=== PATIENT | male | born 1950 | race Caucasian/White ===

== ENCOUNTER 2020-09-27 19:00 | Observation (INO) | payer OTHER, MEDICARE, BC ==
[~2020-09-27] VITALS: Ht 157.5 cm; Wt 98.0 kg
[~2020-09-27 19:00] MED LIST: LORA2 PO; MULVITMINE PO; NITR.4SL SL; OMEP20ER PO
[2020-09-27 19:27] LABS: BASOPHILS ABSOLUTE AUTO 0.05 K/mm3 (0.00-0.23); BASOPHILS PERCENT AUTO 1 % (0-2); EOSINOPHILS ABSOLUTE AUTO 0.12 K/mm3 (0.00-0.68); EOSINOPHILS PERCENT AUTO 2 % (0-6); Hemoglobin 15.1 g/dL (13.5-17.5); IMMATURE GRAN ABSOLUTE AUTO 0.01 K/mm3 (0.00-0.10); IMMATURE GRAN PERCENT AUTO 0 % (0-1); LYMPHOCYTES PERCENT AUTO 35 % (21-46); MONOCYTES ABSOLUTE AUTO 0.47 K/mm3 (0.16-1.47); MONOCYTES PERCENT AUTO 9 % (4-13); Mean Corpuscular HGB 31.8 pg (26.0-34.0); Mean Corpuscular HGB Conc 34.3 g/dL (31.5-36.5); Mean Corpuscular Volume 93 fL (80-100); Mean Platelet Volume 10.7 fL (9.1-12.4); NEUTROPHILS ABSOLUTE AUTO 2.69 K/mm3 (1.96-9.15); NEUTROPHILS PERCENT AUTO 52 % (41-73); Platelet Count 189 K/mm3 (150-400); RDW Coefficient Variation 12.6 % (11.7-14.2); RDW Standard Deviation 43.3 fL (35.1-46.3); Red Blood Cell Count 4.75 M/mm3 (4.30-5.90); White Blood Cell Count 5.14 K/mm3 (4.00-11.30)
[2020-09-27 19:41] LABS: Alanine Aminotransfer (ALT/SGP 207 U/L (12-78); Albumin/Globulin Ratio 1.1 (0.8-1.8); Alk Phos 95 U/L (50-136); Anion Gap 5 mmol/L (6-16); Aspartate Aminotrans (AST/SGOT 131 U/L (12-37); Bilirubin, Total 0.5 mg/dL (0.1-1.0); Blood Urea Nitrogen 21 mg/dL (8-24); Bun/Creatinine Ratio 27.8 (12.0-20.0); CO2, Blood 28 mmol/L (21-32); Calcium, Blood 9.6 mg/dL (8.5-10.1); Chloride, Blood 105 mmol/L (98-108); Creatinine, Blood 0.76 mg/dL (0.60-1.20); Globulin, Blood 3.8 g/dL (2.2-4.0); Glomerular Filtration Rate >60 (60-); Glucose, Blood 127 mg/dL (70-99); Potassium, Blood 3.9 mmol/L (3.5-5.5); Sodium, Blood 138 mmol/L (136-145); Total Protein, Blood 7.8 g/dL (6.4-8.2); Troponin I <0.015 ng/mL (0.000-0.040)
[2020-09-27] MEDS ORDERED: ASCO500 PO (19:48)
[2020-09-27] MEDS ORDERED: VITAMIN D3-ALO1 EACH PO (19:49)
[2020-09-27] MEDS ORDERED: Vitamin B-121000 MCG PO (19:50)
[2020-09-27] MEDS ORDERED: BASAGLAR K100 UNIT/1 SC (21:25)
[2020-09-27] MEDS ORDERED: EUTHYROX125 MCG PO (21:25)
[2020-09-27] MEDS ORDERED: NOVOLOG FL100 UNIT/3 SC (21:25)
[2020-09-27] MEDS ORDERED: Aspir 8181 MG PO (22:05)
[2020-09-27] MEDS ORDERED: ZINC PO (22:05)
--- NOTE | 2020-09-28 04:20 | NUR ---
SHIFT SUMMARY PT NEW ED ADMIT THIS EVENING. PT HAS DENIED CHEST OR SOB SINCE ADMISSION. APPEARED TO SLEEP WELL AFTER BEING LEFT TO REST BY STAFF. TELEMETRY MONITORING READING SR IN THE 80'S THROUGHOUT THE NIGHT. PT NPO AT 0300 FOR SCHEDULED STRESS TEST. NO CAFFEINE. PT ON RA. VITAL SIGNS STABLE. NO ACUTE CHANGES THIS SHIFT. WILL CONTINUE TO MONITOR AND REPORT TO DAY RN.
[2020-09-28 08:17] LABS: CHOL/HDL RATIO 7.1; Cholesterol 261 mg/dL (50-200); HDL Cholesterol 37 mg/dL (>39); Low Density Lipoprotein Chol 186 mg/dL (0-110); Triglycerides 190 mg/dL (30-160); Very Low Density Lipoprot Chol 38 mg/dL (6-32)
--- NOTE | 2020-09-28 16:49 | NUR ---
PATIENT A/OX4 AND INDEPENDENT IN ROOM. FIRST PART OF STRESS TEST COMPLETED THIS AM AND 2ND PART WILL BE TOMORROW. VSS, ON RA. CPAP AT NOC. SR IN THE 70'S ON TELE, PATIENT DENIES ANY CP OR PRESSURE TODAY. 20G IV TO R AC WNL AND SL. ACHS BLOOD SUGARS, TOLERATING ADA/CARDIAC DIET. SKIN INTACT. NO NEW CONCERNS THIS SHIFT. PATIENT IS COOPERATIVE WITH CARE AND ABLE TO MAKE NEEDS KNOWN.
--- NOTE | 2020-09-29 04:57 | NUR ---
SHIFT SUMMARY NO ACUTE CHANGES THIS EVENING. PT SLEPT WELL. CPAP ON WHILE SLEEPING. RA WHILE AWAKE. CONT OX MONITORING. PT NPO SINCE MIDNIGHT FOR SECOND PART OF STRESS TEST. NO CAFFEINE THIS EVENING. PT HAS DENIED ANY CP OR SOB. TELEMETRY SHOWING SR IN THE 80'S. VITAL SIGNS STABLE. WILL CONTINUE TO MONITOR AND REPORT TO DAY RN.
--- NOTE | 2020-09-29 16:20 | NUR ---
PATIENT D/C'D TO HOME WITH SPOUSE. DC INSTRUCTIONS AND EDUCATION DISCUSSED WITH PATIENT AND COPY PROVIDED. NO NEW RX MEDICATIONS. PATIENT DENIES ANY OTHER QUESTIONS AND CONCERNS.
== END 2020-09-29 16:20 | disposition home or self-care (01) ==
LOC: ER 19:00 → MEDS 19:01
PROVIDERS: Emergency Medicine; ADMIT Internal Medicine
DX: I25.10 Atherosclerotic heart disease of native coronary artery without angina pectoris (principal); E03.9 Hypothyroidism, unspecified; E11.9 Type 2 diabetes mellitus without complications; I25.2 Old myocardial infarction; E66.9 Obesity, unspecified; Z29.8 Encounter for other specified prophylactic measures; Z95.1 Presence of aortocoronary bypass graft; Z79.4 Long term (current) use of insulin; Z87.891 Personal history of nicotine dependence
CPT/HCPCS: 36415; 71046; 78452; 80053; 80061; 82947; 84484; 85025; 93005; 93010; 93017; 94660; 94762; 96372; 99285-25; A9270; A9500; G0378; J0280; J1650; J2785

== ENCOUNTER 2021-02-28 09:35 | Emergency (ER) | payer OTHER ==
[~2021-02-28] VITALS: Ht 167.6 cm; Wt 81.7 kg
[~2021-02-28 09:35] MED LIST changes: +ASCO500 PO; +Aspir 8181 MG PO; +BASAGLAR K100 UNIT/1 SC; +EUTHYROX125 MCG PO; +NOVOLOG FL100 UNIT/3 SC; +VITAMIN D3-ALO1 EACH PO; +Vitamin B-121000 MCG PO; +ZINC PO
[2021-02-28 10:18] LABS: BASOPHILS ABSOLUTE AUTO 0.01 K/mm3 (0.00-0.23); BASOPHILS PERCENT AUTO 0 % (0-2); EOSINOPHILS PERCENT AUTO 0 % (0-6); Hematocrit 42.4 % (37.0-53.0); Hemoglobin 14.3 g/dL (13.5-17.5); IMMATURE GRAN ABSOLUTE AUTO 0.03 K/mm3 (0.00-0.10); IMMATURE GRAN PERCENT AUTO 1 % (0-1); LYMPHOCYTES ABSOLUTE AUTO 0.55 K/mm3 (0.84-5.20); LYMPHOCYTES PERCENT AUTO 11 % (21-46); MONOCYTES ABSOLUTE AUTO 0.18 K/mm3 (0.16-1.47); MONOCYTES PERCENT AUTO 4 % (4-13); Mean Corpuscular HGB 30.9 pg (26.0-34.0); Mean Corpuscular HGB Conc 33.7 g/dL (31.5-36.5); Mean Corpuscular Volume 92 fL (80-100); Mean Platelet Volume 11.1 fL (9.1-12.4); NEUTROPHILS ABSOLUTE AUTO 4.29 K/mm3 (1.96-9.15); NEUTROPHILS PERCENT AUTO 85 % (41-73); Platelet Count 166 K/mm3 (150-400); RDW Coefficient Variation 13.1 % (11.7-14.2); RDW Standard Deviation 43.8 fL (35.1-46.3); Red Blood Cell Count 4.63 M/mm3 (4.30-5.90); White Blood Cell Count 5.06 K/mm3 (4.00-11.30)
[2021-02-28 10:40] LABS: Alanine Aminotransfer (ALT/SGP 82 U/L (12-78); Albumin, Blood 2.8 g/dL (3.4-5.0); Albumin/Globulin Ratio 0.7 (0.8-1.8); Alk Phos 47 U/L (50-136); Anion Gap 8 mmol/L (6-16); Aspartate Aminotrans (AST/SGOT 74 U/L (12-37); Bilirubin, Total 1.2 mg/dL (0.1-1.0); Blood Urea Nitrogen 24 mg/dL (8-24); Bun/Creatinine Ratio 30.7 (12.0-20.0); CO2, Blood 25 mmol/L (21-32); Calcium, Blood 8.5 mg/dL (8.5-10.1); Chloride, Blood 105 mmol/L (98-108); Creatinine, Blood 0.78 mg/dL (0.60-1.20); Globulin, Blood 4.2 g/dL (2.2-4.0); Glomerular Filtration Rate >60 (60-); Glucose, Blood 119 mg/dL (70-99); Potassium, Blood 3.7 mmol/L (3.5-5.5); Sodium, Blood 138 mmol/L (136-145); Troponin I <0.015 ng/mL (0.000-0.040)
[2021-02-28 11:00] LABS: SARS-Cov-2 (COVID-19) PCR, MMC POSITIVE (NEGATIVE)
[2021-02-28] MEDS ORDERED: DECADRON6 M1 PO (11:21)
== END 2021-02-28 13:10 | disposition home or self-care (01) ==
LOC: ER 09:35
PROVIDERS: Emergency Medicine
DX: U07.1 COVID-19 (principal); J12.82 Pneumonia due to coronavirus disease 2019; R09.02 Hypoxemia; Z87.891 Personal history of nicotine dependence; Z85.51 Personal history of malignant neoplasm of bladder; Z79.899 Other long term (current) drug therapy; Z79.82 Long term (current) use of aspirin
CPT/HCPCS: 36415; 71045; 80053; 83880; 84484; 85025; 93005; 93010; 96374; 99284-25; J1100; U0004

== ENCOUNTER 2021-03-02 17:14 | Inpatient (IN) | payer OTHER ==
[~2021-03-02] VITALS: Ht 177.8 cm; Wt 88.0 kg
[~2021-03-02 17:14] MED LIST changes: +DECADRON6 M1 PO
[2021-03-02 17:51] LABS: Hematocrit 41.9 % (37.0-53.0); Hemoglobin 14.4 g/dL (13.5-17.5); Mean Corpuscular HGB 30.8 pg (26.0-34.0); Mean Corpuscular HGB Conc 34.4 g/dL (31.5-36.5); Mean Corpuscular Volume 90 fL (80-100); Mean Platelet Volume 11.4 fL (9.1-12.4); Platelet Count 238 K/mm3 (150-400); RDW Coefficient Variation 12.8 % (11.7-14.2); RDW Standard Deviation 42.3 fL (35.1-46.3); Red Blood Cell Count 4.68 M/mm3 (4.30-5.90)
[2021-03-02 18:10] LABS: Alanine Aminotransfer (ALT/SGP 81 U/L (12-78); Albumin, Blood 2.8 g/dL (3.4-5.0); Albumin/Globulin Ratio 0.7 (0.8-1.8); Alk Phos 57 U/L (50-136); Anion Gap 8 mmol/L (6-16); Aspartate Aminotrans (AST/SGOT 71 U/L (12-37); Bilirubin, Total 0.7 mg/dL (0.1-1.0); Blood Urea Nitrogen 38 mg/dL (8-24); Bun/Creatinine Ratio 55.6 (12.0-20.0); CO2, Blood 24 mmol/L (21-32); Calcium, Blood 8.8 mg/dL (8.5-10.1); Chloride, Blood 108 mmol/L (98-108); Creatinine, Blood 0.68 mg/dL (0.60-1.20); Ferritin, Serum 1390 ng/mL (26-388); Globulin, Blood 4.2 g/dL (2.2-4.0); Glomerular Filtration Rate >60 (60-); Glucose, Blood 159 mg/dL (70-99); Lactate Dehydrogenase (Ld),Bld 624 U/L (100-240); Potassium, Blood 3.4 mmol/L (3.5-5.5); Sodium, Blood 140 mmol/L (136-145)
[2021-03-02 18:23] LABS: BAND PERCENT MAN 4 % (0-8); BASOPHILS PERCENT MAN 0 % (0-2); EOSINOPHILS PERCENT MAN 0 % (0-6); LYMPHOCYTES % ATYPICAL MANUAL 3 % (0-0); LYMPHOCYTES ABSOLUTE MAN 0.66 K/mm3 (0.84-5.20); LYMPHOCYTES PERCENT MAN 5 % (21-46); MONOCYTES ABSOLUTE MAN 0.08 K/mm3 (0.16-1.47); MONOCYTES PERCENT MAN 1 % (4-13); NEUTROPHILS ABSOLUTE MAN 7.55 K/mm3 (1.96-9.15); SEG NEUTROPHILS PERCENT MAN 87 % (41-73); TOTAL CELLS COUNTED 100
--- NOTE | 2021-03-02 22:39 | NUR ---
2200 PT ARRIVED TO ROOM FROM ER IN STABLE CONDITION. PT REPORTS A LITTLE SOB THAT INCREASES WITH EXERTION, ON 15L VIA NRB MASK AT 90%. NO OTHER APPARENT SIGNS OF DISTRESS. CALL LIGHT IS IN REACH.
--- NOTE | 2021-03-02 23:04 | NUR ---
TELE IS ON , IT IS NSR AT 63 PER METAL PLATER.
--- NOTE | 2021-03-02 23:05 | NUR ---
PT LYING IN BED, AWAKE, NO APPARENT SIGNS OF DISTRESS. DENIES NEED FOR ANYTHING AT THIS TIME. CALL LIGHT IS IN REACH.
--- NOTE | 2021-03-03 00:09 | NUR ---
PT LYING IN BED, EYES CLOSED, APPEARS TO BE RESTING. BREATHING IS EVEN, UNLABORED. NO APPARENT SIGNS OF DISTRESS. CALL LIGHT IS IN REACH.
--- NOTE | 2021-03-03 01:44 | NUR ---
PT LYING IN BED, EYES CLOSED, APPEARS TO BE RESTING. BREATHING IS EVEN, UNLABORED. NO APPARENT SIGNS OF DISTRESS. CALL LIGHT IS IN REACH.
--- NOTE | 2021-03-03 03:20 | NUR ---
PT LYING IN BED, EYES CLOSED, APPEARS TO BE RESTING. WAKES EASILY TO VERBAL STIMUL. NO APPARENT SIGNS OF DISTRESS. CALL LIGHT IS IN REACH.
--- NOTE | 2021-03-03 03:20 | NUR ---
PT IS AAO X 4 , ON 15L VIA OXIMIZER OR NRB AT 92% , BIPAP AT NOC. A LITTLE SOB THAT INCREASES WITH EXERTION. BS WAS 159. TELE NSR.
--- NOTE | 2021-03-03 05:22 | NUR ---
PT LYING IN BED, EYES CLOSED, APPEARS TO BE RESTING. WAKES EASILY TO VERBAL STIMULI. NO APPARENT SIGNS OF DISTRESS. CALL LIGHT IS IN REACH. NO OTHER CHANGES THIS SHIFT.
--- NOTE | 2021-03-03 05:51 | NUR ---
PT REPORTED SHARP PAIN IN R SIDE OF NECK, HEADING DOWN TO CT NOW. WILL AWAIT RESULTS. NO OTHER APPARENT SIGNS OF DISTRESS.
[2021-03-03 05:56] LABS: BASOPHILS ABSOLUTE AUTO 0.01 K/mm3 (0.00-0.23); BASOPHILS PERCENT AUTO 0 % (0-2); EOSINOPHILS PERCENT AUTO 0 % (0-6); Hematocrit 40.4 % (37.0-53.0); Hemoglobin 13.2 g/dL (13.5-17.5); Mean Corpuscular HGB 30.3 pg (26.0-34.0); Mean Corpuscular HGB Conc 32.7 g/dL (31.5-36.5); Mean Corpuscular Volume 93 fL (80-100); Mean Platelet Volume 11.3 fL (9.1-12.4); Platelet Count 180 K/mm3 (150-400); RDW Coefficient Variation 12.8 % (11.7-14.2); RDW Standard Deviation 43.4 fL (35.1-46.3); Red Blood Cell Count 4.36 M/mm3 (4.30-5.90)
--- NOTE | 2021-03-03 06:12 | NUR ---
PT IS BACK FROM CT, PT REPORTS THE PAIN ON THE R SIDE OF HIS NECK IS GONE NOW. WILL AWAIT RESULTS FROM THE CT. PT DENIES NEED FOR ANYTHING ELSE AT THIS TIME. CALL LIGHT IS IN REACH. NO APPARENT SIGNS OF DISTRESS. NO OTHER CHANGES THIS SHIFT.
[2021-03-03 06:25] LABS: Alanine Aminotransfer (ALT/SGP 78 U/L (12-78); Albumin, Blood 2.5 g/dL (3.4-5.0); Albumin/Globulin Ratio 0.6 (0.8-1.8); Alk Phos 54 U/L (50-136); Anion Gap 8 mmol/L (6-16); Aspartate Aminotrans (AST/SGOT 56 U/L (12-37); Bilirubin, Total 0.7 mg/dL (0.1-1.0); Blood Urea Nitrogen 29 mg/dL (8-24); Bun/Creatinine Ratio 42.3 (12.0-20.0); CO2, Blood 24 mmol/L (21-32); Calcium, Blood 8.5 mg/dL (8.5-10.1); Chloride, Blood 108 mmol/L (98-108); Creatinine, Blood 0.69 mg/dL (0.60-1.20); Globulin, Blood 4.1 g/dL (2.2-4.0); Glomerular Filtration Rate >60 (60-); Glucose, Blood 183 mg/dL (70-99); Potassium, Blood 4.1 mmol/L (3.5-5.5); Sodium, Blood 140 mmol/L (136-145); Total Protein, Blood 6.6 g/dL (6.4-8.2)
[2021-03-03 06:30] LABS: IMMATURE GRAN ABSOLUTE AUTO 0.06 K/mm3 (0.00-0.10); IMMATURE GRAN PERCENT AUTO 1 % (0-1); LYMPHOCYTES ABSOLUTE AUTO 0.55 K/mm3 (0.84-5.20); LYMPHOCYTES PERCENT AUTO 9 % (21-46); MONOCYTES PERCENT AUTO 3 % (4-13); NEUTROPHILS ABSOLUTE AUTO 5.38 K/mm3 (1.96-9.15); NEUTROPHILS PERCENT AUTO 87 % (41-73)
--- NOTE | 2021-03-03 17:57 | NUR ---
SHIFT SUMMARY PATIENT DENIES PAIN AND NAUSEA, OCCASSIONAL COUGH. REQUIRED 15L/OXYMIZER AND 15L/NRB CONCURRENT TO MAINTAIN OXYGEN SATURATION ABOVE 90% THIS MORING. SWITCHED TO CPAP WITH BLEED IN AND NOW MAINTIANING OXYGEN SATURATION ABOVE 90%. URINAL AT BEDSIDE. POOR PO INTAKE. PLEASANT AND COOPERATIVE WITH CARE.
--- NOTE | 2021-03-04 00:10 | NUR ---
EARLIER IN THE SHIFT WANTED PT TO CALL HER, NUMBER GIVEN TO PT. REMAINS ON CPAP WITH OXIMIZER AT 15L/MIN. MED TELE SINUS RHYTHM. SOME EPISODES OF ANXIETY AND REDIRECTED BY STAFF TO TAKE DEEP BREATHS, SATS INCREASED BACK TO THE 90'S. CURRENTLY O2 SATS 91%. CALL LIGHT IN REACH. ISOLATION PRECAUTIONS MAINTAINED
--- NOTE | 2021-03-04 01:33 | NUR ---
O2 SATS DROPPING INTO HIGH 70'S/LOW 80'S. UPON BEDSIDE ASSESSMENT, PT HAD CPAP OFF. INSTRUCTED TO KEEP CPAP ON AND TO TAKE DEEP BREATHS. SATS INCREASED TO 88 - 90% BUT DROPPED BACK INTO MID 80'S. RT NOTIFIED AND WAS INSTRUCTED TO INCREASE O2 BLEED IN ALL THE WAY UP. O2 BLEED IN BACK TO 15L/MIN. (RT VOICED SHE WAS TRYING TO WEAN HIM DOWN). WILL MONITOR. SATS CURRENTLY 93%.
--- NOTE | 2021-03-04 01:56 | NUR ---
o2 sats trending downward to mid 80's again. RT notified and will assess pt. See RT documentation. Call light inr each. Pt again encouraged to take deep breaths
[2021-03-04 03:53] LABS: PCO2 Arterial 29.4 mmHg (35-45); PO2 Arterial 66.3 mmHg (80-100); pH Blood Arterial 7.47 (7.35-7.45)
--- NOTE | 2021-03-04 04:36 | NUR ---
PT APARENTLY BECAME QUITE ANXIOUS, SITTING UP AND BEGAN SHAKING ARMS AND UPPER BODY. O2 SATS DROPPED INTO THE 70'S, HR AND RESPS INCREASED, (136 AND 32 RESPECTIVELY). RAPID RESPONSE CALLED. ORDERED IV LASIX (ADMINISTERED), C XRAY - SEE RADIOLOGY DOC. IV ATIVAN ADMINISTERED. INCREASED O2 PRESSURE. MD EVALUATED STATUS OF PT. GE PLACED. MD GAVE ORDERS FOR TRANSFER TO PCU.
--- NOTE | 2021-03-04 05:01 | NUR ---
GE PLACED WITH STERILE TECHNIQUE. DRAINING CLEAR. CALL LIGHT IN REACH
--- NOTE | 2021-03-04 05:35 | NUR ---
REPORT GIVEN TO NURSE ON PCU FOR TRANSFER. CURRENT HR: 87, O2 SATS: 93%
--- NOTE | 2021-03-04 06:23 | NUR ---
PT TRANSFERRED TO PCU. GE DRAINING CLEAR. CONTINUES ON CPAP FOR O2.
--- NOTE | 2021-03-04 18:42 | NUR ---
SHIFT SUMMARY PT CONFUSED. PULLING AT LINES AND REMOVING AIRVO THIS AM. ORDERS FOR SOFT BILATERAL WRIST RESTRAINTS. PT FREQUENTLY RE-ORIENTED. DID NOT KNOW LOCATION OR WHY HE IS IN HOSPITAL. PT GIVEN ATIVAN TO ASSIST IN CALMING DOWN THIS AM. PT RESTING T/O SHIFT. HR STABLE. BP STABLE. NO CP OR PRESSURE. PT'S REQUESTING UPDATE FROM PHYSICIAN. PHYSICIAN NOTIFIED. GE PATENT AND DRAINING. BED ALARM IN PLACE. OXYGEN SATURATION MAINTAINED ABOVE 90% ON 65L/100% FIO2 ON AIRVO. WILL CONT TO MONITOR UNTIL REPORT GIVEN TO NIGHTSHIFT RN.
[2021-03-05 04:01] LABS: BASOPHILS ABSOLUTE AUTO 0.01 K/mm3 (0.00-0.23); BASOPHILS PERCENT AUTO 0 % (0-2); EOSINOPHILS ABSOLUTE AUTO 0.17 K/mm3 (0.00-0.68); EOSINOPHILS PERCENT AUTO 3 % (0-6); Hematocrit 42.5 % (37.0-53.0); Hemoglobin 14.3 g/dL (13.5-17.5); IMMATURE GRAN ABSOLUTE AUTO 0.08 K/mm3 (0.00-0.10); IMMATURE GRAN PERCENT AUTO 1 % (0-1); LYMPHOCYTES ABSOLUTE AUTO 0.69 K/mm3 (0.84-5.20); LYMPHOCYTES PERCENT AUTO 11 % (21-46); MONOCYTES PERCENT AUTO 3 % (4-13); Mean Corpuscular HGB Conc 33.6 g/dL (31.5-36.5); Mean Corpuscular Volume 92 fL (80-100); NEUTROPHILS ABSOLUTE AUTO 5.21 K/mm3 (1.96-9.15); NEUTROPHILS PERCENT AUTO 82 % (41-73); Platelet Count 231 K/mm3 (150-400); Red Blood Cell Count 4.61 M/mm3 (4.30-5.90); White Blood Cell Count 6.36 K/mm3 (4.00-11.30)
[2021-03-05 04:27] LABS: Alanine Aminotransfer (ALT/SGP 96 U/L (12-78); Albumin, Blood 2.4 g/dL (3.4-5.0); Albumin/Globulin Ratio 0.5 (0.8-1.8); Alk Phos 55 U/L (50-136); Anion Gap 4 mmol/L (6-16); Aspartate Aminotrans (AST/SGOT 56 U/L (12-37); Blood Urea Nitrogen 26 mg/dL (8-24); Bun/Creatinine Ratio 34.3 (12.0-20.0); CO2, Blood 29 mmol/L (21-32); Calcium, Blood 8.8 mg/dL (8.5-10.1); Chloride, Blood 107 mmol/L (98-108); Creatinine, Blood 0.76 mg/dL (0.60-1.20); Globulin, Blood 4.5 g/dL (2.2-4.0); Glomerular Filtration Rate >60 (60-); Glucose, Blood 89 mg/dL (70-99); Potassium, Blood 4.3 mmol/L (3.5-5.5); Sodium, Blood 140 mmol/L (136-145); Total Protein, Blood 6.9 g/dL (6.4-8.2)
--- NOTE | 2021-03-05 05:08 | NUR ---
SHIFT SUMMARY ASSUMED CARE OF PT AT 1900. PT IS A/OX4. PT ASKS REPEATIVLY WHEN HE CAN GO HOME AND WHEN THE DOCTOR WILL SEE HIM. HEART SOUNDS REGULAR. LUNG SOUNDS HAVE CRACKLES T/O. PT REMAINED ON AIRVO T/O THE NIGHT (65L 80%). PT WAS TURNED UP TO 90% THIS AM DUE TO DESATURATION INTO THE LOW 83% AFTER COUGHING. PT HAS A CATHETER DRAINING DARK CHARLENE URINE. PT ABLE TO MOVE HIMSELF AROUND IN BED, TURNING FROM SIDE TO SIDE. CALL LIGHT IN REACH, BED IN LOWEST POSITON, BED ALARM ON.
--- NOTE | 2021-03-05 17:51 | NUR ---
SHIFT SUMMARY PT A&Ox4; COOPERATIVE WITH CARE. PT UP TO CHAIR THIS AFTERNOON WITH 1 PERSON ASSIST. PT ON AIRVO FOR MAJORITY OF SHIFT. CURRENT SETTING 55L AND FIO2 90% O2 SATURATION 88-92%. PT DENIES PAIN, CHEST PAIN, NAUSEA AND DIZZINESS. ENCOUARGES PT TO PRONE/LYING ON SIDE THIS AFTERNOON FOR APPROX 2 HOURS. ORAL COMPLETED T/O SHIFT. BEDBATH COMPLETED DURING SHIFT. VSS. NO OTHER ACUTE CHANGES NOTED DURING SHIFT. WILL CONTINUE TO MONITOR.
--- NOTE | 2021-03-06 05:56 | NUR ---
SHIFT SUMMARY ASSUMED CARE OF PT AT 1900. PT IS A/OX4. HEART SOUNDS REGULAR. LUNG SOUNDS ARE COURSE T/O. PT WAS ON AIRVO T/O THE NIGHT. PT WAS 55L 80% UNTIL AROUND 0200 WHEN HE WAS INCREASED TO 60L AT 90% DUE TO DESATURATIONS WITH ACTIVITY. PT SATURATIONS REMAINED 88- 93% T/O THE NIGHT. PT HAS A CATHETER DRAINING WITH GRAVITY. URINE IS DARK CHARLENE. PT HAD NO NEW COMPLAINTS TONIGHT EXCEPT THAT HE WANTS TO GO HOME. CALL LIGHT IN REACH, BED IN LOWEST POSITON.
--- NOTE | 2021-03-06 16:44 | NUR ---
STARTED PRECEDEX DRIP AT INITIAL DOSE OF 0.4.
--- NOTE | 2021-03-06 17:25 | NUR ---
SHIFT SUMMARY NO ACUTE CHANGES THIS SHIFT. PT IS A/O X4 AND REMAINS ON AIRVO AT 60L 90% AND SATTING IN THE LOW 90'S. PT SATS DOWN INTO THE 80'S WITH MOVEMENT. UP IN THE CHAIR FOR MEALS THIS AM. PT HAS NO COMPLAINTS AND IS EAGER TO GO HOME. VSS. WILL REPORT TO EM ARCE.
--- NOTE | 2021-03-07 03:14 | NUR ---
SHIFT SUMMARY NO ACUTE CHANGES TO REPORT THIS SHIFT. PT HAS RESTED MOST OF THE NIGHT, SOME OCCASIONAL ANXIETY, PT MEDICATED PER EMAR. RESPIRATORY STATUS UNCHANGED THIS SHIFT. PT REMAINS ON 60L 90% AIRVO. PT DENIES SOB. PT MAINTAINS SATS ABOVE 92% T/O SHIFT. GE CATHETER IN PLACE PATENT AND DRAINING. BED IN LOWEST POSITION CALL LIGHT WITHIN REACH.
[2021-03-07 03:49] LABS: BASOPHILS ABSOLUTE AUTO 0.02 K/mm3 (0.00-0.23); BASOPHILS PERCENT AUTO 0 % (0-2); EOSINOPHILS ABSOLUTE AUTO 0.16 K/mm3 (0.00-0.68); EOSINOPHILS PERCENT AUTO 3 % (0-6); Hematocrit 43.6 % (37.0-53.0); Hemoglobin 14.6 g/dL (13.5-17.5); IMMATURE GRAN ABSOLUTE AUTO 0.13 K/mm3 (0.00-0.10); IMMATURE GRAN PERCENT AUTO 2 % (0-1); LYMPHOCYTES ABSOLUTE AUTO 0.69 K/mm3 (0.84-5.20); LYMPHOCYTES PERCENT AUTO 11 % (21-46); MONOCYTES ABSOLUTE AUTO 0.36 K/mm3 (0.16-1.47); MONOCYTES PERCENT AUTO 6 % (4-13); Mean Corpuscular HGB 30.9 pg (26.0-34.0); Mean Corpuscular HGB Conc 33.5 g/dL (31.5-36.5); Mean Corpuscular Volume 92 fL (80-100); Mean Platelet Volume 10.6 fL (9.1-12.4); NEUTROPHILS ABSOLUTE AUTO 5.05 K/mm3 (1.96-9.15); NEUTROPHILS PERCENT AUTO 79 % (41-73); Platelet Count 315 K/mm3 (150-400); RDW Coefficient Variation 13.2 % (11.7-14.2); RDW Standard Deviation 44.2 fL (35.1-46.3); Red Blood Cell Count 4.73 M/mm3 (4.30-5.90); White Blood Cell Count 6.41 K/mm3 (4.00-11.30)
[2021-03-07 04:09] LABS: International Normalized Ratio 1.09; Prothrombin Time Results 11.7 Sec (9.7-11.5)
[2021-03-07 04:17] LABS: Alanine Aminotransfer (ALT/SGP 79 U/L (12-78); Albumin, Blood 2.5 g/dL (3.4-5.0); Albumin/Globulin Ratio 0.5 (0.8-1.8); Alk Phos 58 U/L (50-136); Anion Gap 6 mmol/L (6-16); Aspartate Aminotrans (AST/SGOT 36 U/L (12-37); Bilirubin, Total 0.7 mg/dL (0.1-1.0); Blood Urea Nitrogen 43 mg/dL (8-24); Bun/Creatinine Ratio 49.9 (12.0-20.0); CO2, Blood 29 mmol/L (21-32); Calcium, Blood 9.3 mg/dL (8.5-10.1); Chloride, Blood 105 mmol/L (98-108); Creatinine, Blood 0.86 mg/dL (0.60-1.20); Globulin, Blood 4.7 g/dL (2.2-4.0); Glomerular Filtration Rate >60 (60-); Glucose, Blood 104 mg/dL (70-99); Potassium, Blood 3.8 mmol/L (3.5-5.5); Sodium, Blood 140 mmol/L (136-145); Total Protein, Blood 7.2 g/dL (6.4-8.2)
--- NOTE | 2021-03-07 17:39 | NUR ---
SHIFT SUMMARY PATIENT ALERT AND ORIENTED THROUGHOUT SHIFT. TOLERATING AIRVO AT 60L AT 85% KEEPING SATS ABOVE 90%. TOLERATING ADA DIET AND FLUIDS. GE DC'D, VOIDING WELL. SBA UP TO CHAIR. TELE SR AT 62 PER TELE MONITOR.
[2021-03-08 03:56] LABS: BASOPHILS ABSOLUTE AUTO 0.02 K/mm3 (0.00-0.23); BASOPHILS PERCENT AUTO 0 % (0-2); EOSINOPHILS ABSOLUTE AUTO 0.11 K/mm3 (0.00-0.68); EOSINOPHILS PERCENT AUTO 2 % (0-6); Hematocrit 45.3 % (37.0-53.0); Hemoglobin 15.1 g/dL (13.5-17.5); IMMATURE GRAN ABSOLUTE AUTO 0.14 K/mm3 (0.00-0.10); IMMATURE GRAN PERCENT AUTO 2 % (0-1); LYMPHOCYTES ABSOLUTE AUTO 1.05 K/mm3 (0.84-5.20); LYMPHOCYTES PERCENT AUTO 16 % (21-46); MONOCYTES ABSOLUTE AUTO 0.42 K/mm3 (0.16-1.47); MONOCYTES PERCENT AUTO 7 % (4-13); Mean Corpuscular HGB 31.1 pg (26.0-34.0); Mean Corpuscular HGB Conc 33.3 g/dL (31.5-36.5); Mean Corpuscular Volume 93 fL (80-100); Mean Platelet Volume 10.9 fL (9.1-12.4); NEUTROPHILS ABSOLUTE AUTO 4.74 K/mm3 (1.96-9.15); NEUTROPHILS PERCENT AUTO 73 % (41-73); Platelet Count 313 K/mm3 (150-400); RDW Coefficient Variation 13.1 % (11.7-14.2); RDW Standard Deviation 44.8 fL (35.1-46.3); Red Blood Cell Count 4.86 M/mm3 (4.30-5.90); White Blood Cell Count 6.48 K/mm3 (4.00-11.30)
[2021-03-08 04:08] LABS: International Normalized Ratio 1.11; Prothrombin Time Results 11.9 Sec (9.7-11.5)
[2021-03-08 04:14] LABS: Anion Gap 7 mmol/L (6-16); Blood Urea Nitrogen 45 mg/dL (8-24); Bun/Creatinine Ratio 52.6 (12.0-20.0); CO2, Blood 26 mmol/L (21-32); Calcium, Blood 9.5 mg/dL (8.5-10.1); Chloride, Blood 104 mmol/L (98-108); Creatinine, Blood 0.86 mg/dL (0.60-1.20); Glomerular Filtration Rate >60 (60-); Glucose, Blood 85 mg/dL (70-99); Magnesium, Blood 2.3 mg/dL (1.6-2.4); Potassium, Blood 3.6 mmol/L (3.5-5.5); Sodium, Blood 137 mmol/L (136-145)
--- NOTE | 2021-03-08 05:46 | NUR ---
SHIFT SUMMARY PT RESTED WELL THROUGH THE NIGHT. ALERT AND ORIENTED, BUT FORGETFUL AT TIMES. COOPERATIVE WITH PLAN OF CARE. SATS >90% ON AIRVO 60L/85%. TELE, NSR 68. STAND BY ASSIST TO BSC. VOIDING TO URINAL. NO SKIN ISSUES. RESPIRATORY STATUS IMPROVING SLOWLY. NO C/O PAIN. VSS. CALL LIGHT WITHIN REACH, BED IN LOWEST POSITION. WILL CONTINUE TO MONITOR.
--- NOTE | 2021-03-08 07:52 | NUR ---
[place] [facility] Received report from the night nurse. He is a/o x 4 but forgetful at times. He remains on the airvo @ 85%. He is currently @ 93% o2 saturation. ART DISPLAY MAKER assisted him up to the recliner. He has his call light in reach and is able to make his needs known.
--- NOTE | 2021-03-08 10:55 | NUR ---
Update The charge nurse just received a call from the [facility] that they will be accepting this pt. They are arranging for air transport. The pt and his have both been updated and we are awaiting word on a bed.
--- NOTE | 2021-03-08 13:03 | NUR ---
Report was attempted to be called to the receiving nurse at the [facility] but she was in an iso room. She will call when she comes out of isolation.
--- NOTE | 2021-03-08 13:51 | NUR ---
Update Flight nurses came to machine operator picker the pt for transport to the [facility]. Dr Ingram saw the pt at the bedside before they left. Report was given to the flight nurses. All his personal items were sent with him and his has been updated. The pt was stable upon transport.
== END 2021-03-08 13:32 | disposition short-term general hospital (02) | DRG 871 ==
LOC: ER 17:14 → ERHOLD 19:07 → MEDS 19:07 → PCU 19:07 → MEDS 22:01 → PCU 03-04 05:06
PROVIDERS: Emergency Medicine; Family Medicine; Internal Medicine; ADMIT Internal Medicine
PROC: 3E0D73Z Introduction of Anti-inflammatory into Mouth and Pharynx, Via Natural or Artificial Opening (ICD-10-PCS; principal; 2021-03-02)
PROC: XW033E5 Introduction of Remdesivir Anti-infective into Peripheral Vein, Percutaneous Approach, New Technology Group 5 (ICD-10-PCS; 2021-03-02)
PROC: 8E0ZXY6 Isolation (ICD-10-PCS; 2021-03-02)
PROC: 5A09357 Assistance with Respiratory Ventilation, Less than 24 Consecutive Hours, Continuous Positive Airway Pressure (ICD-10-PCS; 2021-03-07)
PROC: 5A0935A Assistance with Respiratory Ventilation, Less than 24 Consecutive Hours, High Flow/Velocity Cannula (ICD-10-PCS; 2021-03-07)
DX: A41.89 Other specified sepsis (principal); U07.1 COVID-19; J12.82 Pneumonia due to coronavirus disease 2019; J96.01 Acute respiratory failure with hypoxia; G47.33 Obstructive sleep apnea (adult) (pediatric); E03.9 Hypothyroidism, unspecified; K21.9 Gastro-esophageal reflux disease without esophagitis; K58.9 Irritable bowel syndrome, unspecified; F43.10 Post-traumatic stress disorder, unspecified; I25.10 Atherosclerotic heart disease of native coronary artery without angina pectoris; E11.65 Type 2 diabetes mellitus with hyperglycemia; T38.0X5A Adverse effect of glucocorticoids and synthetic analogues, initial encounter; I25.2 Old myocardial infarction; Z99.81 Dependence on supplemental oxygen; Z85.51 Personal history of malignant neoplasm of bladder; Z95.1 Presence of aortocoronary bypass graft; Z79.899 Other long term (current) drug therapy; Z79.82 Long term (current) use of aspirin; Z79.4 Long term (current) use of insulin; Z86.73 Personal history of transient ischemic attack (TIA), and cerebral infarction without residual deficits; Z87.891 Personal history of nicotine dependence
CPT/HCPCS: 36415; 36600; 71045; 71260; 80048; 80053; 82728; 82803; 82947; 83615; 83735; 84145; 85025; 85379; 85610; 86140; 86141; 93005; 93010; 94640; 94660; 94762; 96374; 99285-25; A9270; J1650; J1815; J1940; J2060; J2270; J7050; Q9967

== ENCOUNTER 2023-07-13 10:12 | Day surgery (SDC) | payer OTHER ==
[2023-07-13] VITALS (15 sets, daily range): BP systolic 110–145; BP diastolic 60–90
[~2023-07-13] VITALS: Ht 172.7 cm; Wt 96.0 kg
[~2023-07-13 10:12] MED LIST changes: +INSULANI SC; +METO25ER PO
--- NOTE | 2023-07-13 13:18 | NUR ---
07/13/23 1318 Angeline Zimmerman SPINAL NERVE BLOCK COMPLETED BY DR. SEO UPON ENTRY TO OR. PT TOLERATED WELL.
--- NOTE | 2023-07-13 15:03 | NUR ---
POST OP ARRIVAL TO SURGICAL UNIT ALERT & ORIENTED, PLEASANT. ASSESSMENT CHARTED. UNABLE TO WIGGLE TOES R/T SPINAL. DENIES N/V SO SNACKS & FLUIDS GIVEN.
--- NOTE | 2023-07-13 18:58 | NUR ---
SHIFT SUMMARY PT HAS DONE WELL POST OP. SPINAL WORE OFF & WAS ABLE TO GET UP AND AMBULATE IN ROOM. EATING, DRINKING, & VOIDED. SAM WNL.
--- NOTE | 2023-07-14 04:43 | NUR ---
SHIFT SUMMARY PT POD 0 RIGHT TOTAL KNEE. HE HAS DONE WELL OVERNIGHT, PAIN HAS BEEN MINIMAL. PT IS VOIDING, AND TOLERATING PO INTAKE. DRESSING C/D/I TO RIGHT KNEE. POST OP VITALS STABLE. PLAN OF CARE REMAINS UNCHANGED.
[2023-07-14 04:48] VITALS: BP 113/75
[2023-07-14 05:04] LABS: BASOPHILS ABSOLUTE AUTO 0.01 K/mm3 (0.00-0.23); BASOPHILS PERCENT AUTO 0 % (0-2); EOSINOPHILS ABSOLUTE AUTO 0.01 K/mm3 (0.00-0.68); EOSINOPHILS PERCENT AUTO 0 % (0-6); Hematocrit 39.7 % (37.0-53.0); Hemoglobin 13.6 g/dL (13.5-17.5); IMMATURE GRAN ABSOLUTE AUTO 0.02 K/mm3 (0.00-0.10); IMMATURE GRAN PERCENT AUTO 0 % (0-1); LYMPHOCYTES ABSOLUTE AUTO 1.08 K/mm3 (0.84-5.20); LYMPHOCYTES PERCENT AUTO 12 % (21-46); MONOCYTES ABSOLUTE AUTO 0.67 K/mm3 (0.16-1.47); MONOCYTES PERCENT AUTO 7 % (4-13); Mean Corpuscular HGB 30.8 pg (26.0-34.0); Mean Corpuscular HGB Conc 34.3 g/dL (31.5-36.5); Mean Corpuscular Volume 90 fL (80-100); Mean Platelet Volume 11.2 fL (9.1-12.4); NEUTROPHILS ABSOLUTE AUTO 7.22 K/mm3 (1.96-9.15); NEUTROPHILS PERCENT AUTO 80 % (41-73); Platelet Count 161 K/mm3 (150-400); RDW Coefficient Variation 12.7 % (11.7-14.2); Red Blood Cell Count 4.42 M/mm3 (4.30-5.90); White Blood Cell Count 9.01 K/mm3 (4.00-11.30)
[2023-07-14 05:33] LABS: Magnesium, Blood 2.2 mg/dL (1.6-2.4)
[2023-07-14 05:34] LABS: Calcium, Blood 9.3 mg/dL (8.5-10.1); Creatinine, Blood 0.58 mg/dL (0.60-1.20); Potassium, Blood 4.1 mmol/L (3.5-5.5)
[2023-07-14 07:42] VITALS: BP 130/79
[2023-07-14] MEDS ORDERED: XARELTO20 MG PO (08:30)
[2023-07-14] MEDS ORDERED: SULTRIDS PO (08:30)
[2023-07-14] MEDS ORDERED: OXYC5 PO (08:31)
--- NOTE | 2023-07-14 09:05 | NUR ---
DISCHARGE NOTE: PATIENT WAS EDUCATED ON DISCHARGE INSTRUCTIONS. HE VERBALIZED UNDERSTANDING OF INSTRUCTIONS AND HAD NO FURTHER QUESTIONS AT THIS TIME. IV WAS TAKEN OUT AND WNL. PAIN IS MANAGED WITH PO PAIN MEDS. HIS RIGHT KNEE HAS AN AQUACEL THAT IS C/D/I. DENIES NUMBNESS OR TINGLING THROUGHOUT ALL EXTREMITIES. HE IS TOLERATING PO INTAKE AND IS VOIDING. HE IS A SBA WITH FWW AND GAIT BELT. PATIENT IS DRESSED AND HAS PERSONAL ITEMS IN THE ROOM GATHERED. PATIENTS HARD PERSCRITPIONS WERE SENT TO [facility] BY DR. ARRINGTON YESTERDAY.
--- NOTE | 2023-07-14 09:10 | NUR ---
PATIENT IS AWAITING FOR HIS RIDE TO ARRIVE TO BE TAKEN HOME. HE IS LAYING IN THE RECLINER WITH CALL LIGHT IN REACH.
--- NOTE | 2023-07-14 09:20 | NUR ---
PATIENT IS BEING WHEELCHAIRED DOWN TO HIS SPOUSES CAR TO BE TAKEN HOME. HE HAS ALL OF HIS PERSONAL ITEMS IN THE ROOM GATHERED AND WITH HIM.
== END 2023-07-14 09:21 | disposition home or self-care (01) ==
LOC: ORSCMMR 10:12 → ORD 13:00 → SURS 14:36 → ORSCMMR 07-14 09:21
PROVIDERS: Orthopaedic Surgery
PROC: 0SRC0JA Replacement of Right Knee Joint with Synthetic Substitute, Uncemented, Open Approach (ICD-10-PCS; principal; 2023-07-13 11:30)
DX: M17.11 Unilateral primary osteoarthritis, right knee (principal); E11.9 Type 2 diabetes mellitus without complications; I25.2 Old myocardial infarction; Z86.73 Personal history of transient ischemic attack (TIA), and cerebral infarction without residual deficits; Z85.51 Personal history of malignant neoplasm of bladder; Z87.891 Personal history of nicotine dependence; Z79.4 Long term (current) use of insulin; E03.9 Hypothyroidism, unspecified; G47.33 Obstructive sleep apnea (adult) (pediatric); K21.9 Gastro-esophageal reflux disease without esophagitis; Z79.899 Other long term (current) drug therapy
CPT/HCPCS: 36415; 73560-RT; 80048; 82947; 83735; 85025; 94660; 94762; 97110; 97116; 97162; A9270; C1713; C1776; J0171; J0690; J0735; J1815; J1885; J2405; J2795; J7120